=== PATIENT | female | born 1950 | race African-American/Black ===

== ENCOUNTER 2016-12-31 01:05 | Inpatient (IN) | payer MEDICARE, MEDICAID ==
[~2016-12-31] VITALS: Ht 152.4 cm; Wt 77.1 kg
[2016-12-31] MEDS ORDERED: MORPHINE SULFATE 4 MG/ML CPJ (NOT FOR IM USE) IV STA (01:42)
[2016-12-31] MEDS ORDERED: ONDANSETRON HCL 4MG/2ML VIAL IV STA (01:42)
[2016-12-31] MEDS ORDERED: SODIUM CHLORIDE 0.9% 1,000 ML IV ONE (01:42)
[2016-12-31 03:15] LABS: BASOPHILS % 2.2 % (0.0-2.0); EOSINOPHILS % 1.1 % (0.0-5.0); HEMATOCRIT. 37.7 % (36.0-48.0); HEMOGLOBIN. 12.5 g/dL (12.0-16.0); LYMPHOCYTES % 40.5 % (20.0-50.0); MEAN CORPUSCULAR HEMOGLOBIN 31.3 pg (28.0-32.0); MEAN CORPUSCULAR VOLUME 94.6 fL (81.0-99.0); MEAN PLATELET VOLUME 7.3 fl (7.4-10.4); MONOCYTES % 7.9 % (2.0-8.0); NEUTROPHILS % 48.3 % (40.0-76.0); PLATELET 215 x1000/uL (130-400); RED BLOOD CELL COUNT 3.98 mill/uL (4.2-5.4); RED CELL DISTRIBUTION WIDTH 15.7 % (11.6-14.6)
[2016-12-31 04:06] LABS: CARBON DIOXIDE 27 mEq/L (21-32); CHLORIDE 105 mEq/L (98-107)
[2016-12-31 10:04] LABS: CLARITY URINE CLEAR (CLEAR); COLOR URINE YELLOW (YELLOW); GLUCOSE URINE NEGATIVE (NEGATIVE); KETONES URINE NEGATIVE (NEGATIVE); LEUKOCYTE ESTERASE URINE 3+ (NEGATIVE); NITRITE URINE POSITIVE (NEGATIVE); OCCULT BLOOD URINE NEGATIVE (NEGATIVE); PH URINE 6.5 (4.5-8.0); PROTEIN URINE NEGATIVE (NEGATIVE); SPECIFIC GRAVITY URINE 1.005 (1.005-1.030)
[2016-12-31] MEDS: HYDROCODONE/ACETAMINOPHEN 10/325MG TABLET PO PRN ×2 (10:25→18:15)
[2016-12-31 14:00] VITALS: BP 110/52
[2016-12-31 15:00] VITALS: BP 110/52
[2016-12-31 16:00] VITALS: BP 114/57
[2016-12-31] MEDS ORDERED: BACL-141 PO (16:46)
[2016-12-31] MEDS ORDERED: LINA290C PO (16:46)
[2016-12-31] MEDS ORDERED: QUET25TA PO (16:46)
[2016-12-31] MEDS ORDERED: MULT-1223 PO (16:46)
[2016-12-31] MEDS ORDERED: CYCL5TAB PO (16:46)
[2016-12-31] MEDS ORDERED: OXYC-100 PO (16:46)
[2016-12-31] MEDS ORDERED: MAGN400T27 PO (16:46)
[2016-12-31] MEDS ORDERED: LACT1CAP68 PO (16:46)
[2016-12-31] MEDS ORDERED: SENN-169 PO (16:46)
[2016-12-31] MEDS ORDERED: ESCI10TA PO (16:46)
[2016-12-31] MEDS ORDERED: OXYB5TAB11 PO (16:46)
[2016-12-31] MEDS ORDERED: HYDR-522 PO (16:46)
[2016-12-31] MEDS ORDERED: ACET-2178 PO (16:46)
[2016-12-31] MEDS ORDERED: TEMA30CA5 PO (16:46)
[2016-12-31] MEDS ORDERED: LACT10SO6 PO (16:46)
[2016-12-31] MEDS ORDERED: GABA-290 PO (16:46)
[2016-12-31] MEDS ORDERED: PANT40TA4 PO (16:46)
[2016-12-31] MEDS ORDERED: LIDO700A15 TP (16:46)
[2016-12-31] MEDS ORDERED: BACLOFEN 10MG TABLET PO PRN (18:27)
[2016-12-31] MEDS ORDERED: ACETAMINOPHEN 325MG TABLET PO PRN (18:30)
[2016-12-31] MEDS ORDERED: HYDROCODONE/APAP 7.5/325MG 1 TAB TABLET PO PRN (18:30)
[2016-12-31] MEDS ORDERED: IBUPROFEN 600MG TABLET PO PRN (19:45)
[2016-12-31 20:00] VITALS: BP 121/64
[2016-12-31] MEDS: NA PHOS,M-B/NA PHOS,DI-BA ENEMA 118ML PR PRN (20:34)
[2016-12-31] MEDS: QUETIAPINE FUMARATE 25MG TABLET PO SCH (20:40)
[2017-01-01] VITALS: BP 113/65
[2017-01-01 04:00] VITALS: BP 137/77
[2017-01-01] MEDS: HYDROCODONE/ACETAMINOPHEN 10/325MG TABLET PO PRN (05:31)
[2017-01-01 08:00] VITALS: BP 123/70
[2017-01-01] MEDS ORDERED: QUETIAPINE FUMARATE 25MG TABLET PO SCH (09:00)
[2017-01-01] MEDS: OXYBUTYNIN CHLORIDE 5MG TABLET PO SCH (09:04)
[2017-01-01] MEDS: QUETIAPINE FUMARATE 25MG TABLET PO SCH ×2 (09:04→16:37)
[2017-01-01] MEDS: LIDOCAINE 5% PATCH TOP SCH (09:04)
[2017-01-01] MEDS: SENNOSIDES 8.6MG TABLET PO SCH ×2 (09:04→16:37)
[2017-01-01] MEDS: MAGNESIUM OXIDE 400MG TABLET PO SCH (09:05)
[2017-01-01 12:00] VITALS: BP 100/47
[2017-01-01 16:04] VITALS: BP 105/47
[2017-01-01] MEDS: HYDROCODONE/ACETAMINOPHEN 5/325MG TABLET PO PRN ×2 (16:41→20:35)
[2017-01-01 20:00] VITALS: BP 110/62
[2017-01-01] MEDS: ZOLPIDEM TARTRATE 5MG TABLET PO PRN (21:58)
[2017-01-02] VITALS: BP 144/74
[2017-01-02] MEDS: NA PHOS,M-B/NA PHOS,DI-BA ENEMA 118ML PR PRN (01:35)
[2017-01-02 04:00] VITALS: BP 160/79
[2017-01-02 08:00] VITALS: BP 126/79
[2017-01-02] MEDS: QUETIAPINE FUMARATE 25MG TABLET PO SCH ×2 (08:43→18:20)
[2017-01-02] MEDS: MULTIVITAMINS,THER W-MINERALS TABLET PO SCH (08:43)
[2017-01-02] MEDS: SENNOSIDES 8.6MG TABLET PO SCH ×2 (08:43→18:20)
[2017-01-02] MEDS: OXYBUTYNIN CHLORIDE 5MG TABLET PO SCH (08:43)
[2017-01-02] MEDS: LIDOCAINE 5% PATCH TOP SCH (08:43)
[2017-01-02] MEDS: MAGNESIUM OXIDE 400MG TABLET PO SCH (08:43)
[2017-01-02 12:00] VITALS: BP 130/56
[2017-01-02] MEDS: HYDROCODONE/ACETAMINOPHEN 5/325MG TABLET PO PRN ×2 (15:01→21:45)
[2017-01-02 16:00] VITALS: BP 92/65
[2017-01-02 20:24] VITALS: BP 138/80
[2017-01-02] MEDS: ZOLPIDEM TARTRATE 5MG TABLET PO PRN (22:19)
[2017-01-03] VITALS (7 sets, daily range): BP systolic 119–159; BP diastolic 66–82
[2017-01-03] MEDS: OXYBUTYNIN CHLORIDE 5MG TABLET PO SCH (09:04)
[2017-01-03] MEDS: SENNOSIDES 8.6MG TABLET PO SCH ×2 (09:04→17:18)
[2017-01-03] MEDS: MULTIVITAMINS,THER W-MINERALS TABLET PO SCH (09:04)
[2017-01-03] MEDS: MAGNESIUM OXIDE 400MG TABLET PO SCH (09:04)
[2017-01-03] MEDS: QUETIAPINE FUMARATE 25MG TABLET PO SCH ×2 (09:04→17:18)
[2017-01-03] MEDS: LIDOCAINE 5% PATCH TOP SCH (09:06)
[2017-01-03] MEDS: HYDROCODONE/ACETAMINOPHEN 5/325MG TABLET PO PRN ×2 (09:06→17:20)
== END 2017-01-03 21:26 | DRG 347 ==
LOC: ER 01:06 → 7WST 06:19 → EDBEDREQ 06:23 → ENRESERV 12:02
PROVIDERS: ADMIT Internal Medicine; ATTEND Internal Medicine
DX: M54.5 Low back pain (principal); E66.9 Obesity, unspecified; M19.90 Unspecified osteoarthritis, unspecified site; M06.9 Rheumatoid arthritis, unspecified; F17.200 Nicotine dependence, unspecified, uncomplicated; F41.9 Anxiety disorder, unspecified; Z83.3 Family history of diabetes mellitus; Z96.641 Presence of right artificial hip joint; G89.29 Other chronic pain; Z79.899 Other long term (current) drug therapy; Z68.33 Body mass index [BMI] 33.0-33.9, adult
CPT/HCPCS: 36415; 71010; 72131; 74176; 80053; 81001; 83605; 85025; 85651; 93005; 93970; 96361; 96374; 96375; 97110; 97163; 97530; 99285; J2270; J2405; J7030; J7050; A4315

== ENCOUNTER 2017-01-28 01:48 | Inpatient (IN) | payer MEDICARE, MEDICAID ==
[~2017-01-28] VITALS: Ht 172.7 cm; Wt 98.4 kg
[~2017-01-28 01:48] MED LIST: ACET-2178 PO; BACL-141 PO; CYCL5TAB PO; ESCI10TA PO; GABA-290 PO; HYDR-522 PO; LACT10SO6 PO; LACT1CAP68 PO; LIDO700A15 TP; LINA290C PO; MAGN400T27 PO; MULT-1223 PO; OXYB5TAB11 PO; OXYC-100 PO; PANT40TA4 PO; QUET25TA PO; SENN-169 PO; TEMA30CA5 PO
[2017-01-28] MEDS ORDERED: ONDANSETRON 4MG ODT PO ONE (04:45)
[2017-01-28] MEDS ORDERED: KETOROLAC 30MG/ML VIAL IV ONE (04:45)
[2017-01-28 04:57] LABS: EOSINOPHILS % 2.4 % (0.0-5.0); HEMOGLOBIN. 13.8 g/dL (12.0-16.0); LYMPHOCYTES % 49.5 % (20.0-50.0); MEAN CORPUSCULAR HEMOGLOBIN 31.6 pg (28.0-32.0); MONOCYTES % 11.9 % (2.0-8.0); NEUTROPHILS % 35.2 % (40.0-76.0); RED BLOOD CELL COUNT 4.37 mill/uL (4.2-5.4); RED CELL DISTRIBUTION WIDTH 16.4 % (11.6-14.6)
[2017-01-28 05:07] LABS: INR 1.3; PROTHROMBIN TIME 13.6 sec (9.4-11.6)
[2017-01-28 05:11] LABS: CARBON DIOXIDE 25 mEq/L (21-32); CHLORIDE 110 mEq/L (98-107)
[2017-01-28 05:33] LABS: GLUCOSE URINE NEGATIVE (NEGATIVE); KETONES URINE NEGATIVE (NEGATIVE); LEUKOCYTE ESTERASE URINE 2+ (NEGATIVE); NITRITE URINE NEGATIVE (NEGATIVE); OCCULT BLOOD URINE NEGATIVE (NEGATIVE); PROTEIN URINE NEGATIVE (NEGATIVE); SPECIFIC GRAVITY URINE 1.012 (1.005-1.030); UROBILINOGEN URINE 0.2 E.U./dL (0.2-1.0)
[2017-01-28 05:34] LABS: CLARITY URINE SL HAZY (CLEAR); COLOR URINE YELLOW (YELLOW)
[2017-01-28 05:43] LABS: *AMPHETAMINES SCREEN URINE NEGATIVE (NEGATIVE); *BARBITURATES SCREEN URINE NEGATIVE (NEGATIVE); *BENZODIAZEPINES SCREEN URINE NEGATIVE (NEGATIVE); *COCAINE SCREEN URINE NEGATIVE (NEGATIVE); CANNABINOID URINE SCREEN NEGATIVE (NEGATIVE); METHADONE URINE SCREEN NEGATIVE (NEGATIVE); OPIATES URINE SCREEN PRESUMTIVE POSITIVE (NEGATIVE); PHENCYCLIDINE URINE SCREEN NEGATIVE (NEGATIVE)
[2017-01-28 05:46] LABS: MEAN PLATELET VOLUME 7.1 fl (7.4-10.4); PLATELET 166 x1000/uL (130-400)
[2017-01-28] MEDS ORDERED: MORPHINE SULFATE 10 MG/ML CPJ IV SCH (09:18)
[2017-01-28] MEDS ORDERED: CEFTRIAXONE 1 G PREMIX 50 ML IV ONE (11:45)
[2017-01-28] MEDS ORDERED: MORPHINE SULFATE 4 MG/ML CPJ (NOT FOR IM USE) IV ONE (13:30)
[2017-01-28 17:00] VITALS: BP 149/81
[2017-01-28 20:00] VITALS: BP 130/83
[2017-01-28] MEDS ORDERED: GUAIFENESIN 200MG/10ML SUGAR FREE UDC PO PRN (21:15)
[2017-01-28] MEDS ORDERED: MAGNESIUM HYDROXIDE 400MG/5ML 30ML UDC PO PRN (21:15)
[2017-01-28] MEDS ORDERED: IPRATROPIUM/ALBUTEROL 0.5-3(2.5)MG/3ML NEB INH PRN (21:15)
[2017-01-28] MEDS ORDERED: ONDANSETRON HCL 4MG/2ML VIAL IV PRN (21:15)
[2017-01-28] MEDS ORDERED: ACETAMINOPHEN 325MG TABLET PO PRN (21:15)
[2017-01-28] MEDS ORDERED: ENOXAPARIN 40MG/0.4ML SYR SUBCUT SCH (21:15)
[2017-01-28] MEDS ORDERED: CLONIDINE 0.1MG TABLET PO PRN (21:15)
[2017-01-28] MEDS ORDERED: SENNOSIDES 8.6MG TABLET PO PRN (21:30)
[2017-01-28] MEDS: DIPHENHYDRAMINE 50MG/ML VIAL IV PRN (22:38)
[2017-01-28] MEDS: GABAPENTIN 300MG CAPSULE PO SCH (22:38)
[2017-01-28] MEDS: QUETIAPINE FUMARATE 25MG TABLET PO SCH (22:38)
[2017-01-28] MEDS: BISACODYL 10MG SUPP PR PRN (22:38)
[2017-01-28] MEDS: SODIUM CHLORIDE 0.9% INJ 3ML FLUSH IVF SCH (22:39)
[2017-01-28] MEDS ORDERED: TEMAZEPAM 15MG CAPSULE PO PRN (23:15)
[2017-01-29] VITALS: BP 166/80
[2017-01-29] MEDS: TEMAZEPAM 15MG CAPSULE PO PRN (01:01)
[2017-01-29 04:00] VITALS: BP 144/81
[2017-01-29] MEDS: SODIUM CHLORIDE 0.9% INJ 3ML FLUSH IVF SCH ×3 (06:41→21:40)
[2017-01-29] MEDS: GABAPENTIN 300MG CAPSULE PO SCH ×3 (06:41→21:40)
[2017-01-29 08:00] VITALS: BP 143/84
[2017-01-29 08:31] LABS: BASOPHILS % 1.3 % (0.0-2.0); EOSINOPHILS % 3.2 % (0.0-5.0); HEMATOCRIT. 43.2 % (36.0-48.0); HEMOGLOBIN. 14.3 g/dL (12.0-16.0); LYMPHOCYTES % 47.6 % (20.0-50.0); MEAN CORPUSCULAR HEMOGLOBIN 31.7 pg (28.0-32.0); MEAN CORPUSCULAR VOLUME 95.5 fL (81.0-99.0); MEAN PLATELET VOLUME 7.4 fl (7.4-10.4); MONOCYTES % 8.6 % (2.0-8.0); NEUTROPHILS % 39.3 % (40.0-76.0); PLATELET 177 x1000/uL (130-400); RED BLOOD CELL COUNT 4.52 mill/uL (4.2-5.4); RED CELL DISTRIBUTION WIDTH 16.8 % (11.6-14.6)
[2017-01-29 08:53] LABS: CARBON DIOXIDE 28 mEq/L (21-32); CHLORIDE 106 mEq/L (98-107)
[2017-01-29] MEDS: POLYETHYLENE GLYCOL 3350 (17GM) 1 DOSE PACK PO SCH (09:00)
[2017-01-29] MEDS: QUETIAPINE FUMARATE 25MG TABLET PO SCH ×2 (09:00→20:02)
[2017-01-29] MEDS: ENOXAPARIN 30MG/0.3ML SYR SUBCUT SCH ×2 (09:02→20:02)
[2017-01-29 12:00] VITALS: BP 121/72
[2017-01-29] MEDS: HYDROCODONE/APAP 7.5/325MG 1 TAB TABLET PO PRN ×2 (12:38→20:03)
[2017-01-29 16:00] VITALS: BP 133/70
[2017-01-29] MEDS: MAGNESIUM/ALUMINUM HYDROXIDE/SIMETHICONE 30ML UDC PO PRN (18:24)
[2017-01-29 20:00] VITALS: BP 132/70
[2017-01-29] MEDS: DIPHENHYDRAMINE 50MG/ML VIAL IV PRN (20:03)
[2017-01-29] MEDS: CEFTRIAXONE 1 G PREMIX 50 ML IV SCH (21:49)
[2017-01-30] VITALS: BP 134/68
[2017-01-30] MEDS: TEMAZEPAM 15MG CAPSULE PO PRN (00:50)
[2017-01-30] MEDS: IBUPROFEN 600MG TABLET PO PRN ×2 (00:50→09:06)
[2017-01-30 04:00] VITALS: BP 141/84
[2017-01-30] MEDS: SODIUM CHLORIDE 0.9% INJ 3ML FLUSH IVF SCH ×2 (06:04→14:49)
[2017-01-30] MEDS: GABAPENTIN 300MG CAPSULE PO SCH ×3 (06:05→20:42)
[2017-01-30] MEDS: HYDROCODONE/APAP 7.5/325MG 1 TAB TABLET PO PRN ×2 (06:05→14:05)
[2017-01-30 08:00] VITALS: BP 127/59
[2017-01-30 08:59] LABS: HEPATITIS B CORE AB IGM NEGATIVE
[2017-01-30] MEDS: QUETIAPINE FUMARATE 25MG TABLET PO SCH ×2 (08:59→20:41)
[2017-01-30] MEDS: ENOXAPARIN 30MG/0.3ML SYR SUBCUT SCH ×2 (08:59→20:49)
[2017-01-30 09:01] LABS: HEPATITIS A AB IGM NEGATIVE (NEGATIVE)
[2017-01-30] MEDS: POLYETHYLENE GLYCOL 3350 (17GM) 1 DOSE PACK PO SCH (09:03)
[2017-01-30] MEDS: BISACODYL 10MG SUPP PR PRN (09:07)
[2017-01-30 09:12] LABS: HEPATITIS B SURFACE ANTIGEN NEGATIVE
[2017-01-30 12:00] VITALS: BP 130/78
[2017-01-30] MEDS: MAGNESIUM/ALUMINUM HYDROXIDE/SIMETHICONE 30ML UDC PO PRN (14:02)
[2017-01-30 16:00] VITALS: BP 128/84
[2017-01-30] MEDS ORDERED: LACTULOSE 20G/30ML UDC PO PRN (18:30)
[2017-01-30 20:00] VITALS: BP 121/73
[2017-01-30] MEDS: CEFTRIAXONE 1 G PREMIX 50 ML IV SCH (20:41)
[2017-01-30] MEDS: SENNOSIDES 8.6MG TABLET PO SCH (20:51)
[2017-01-31] VITALS: BP 135/60
[2017-01-31] MEDS: SODIUM CHLORIDE 0.9% INJ 3ML FLUSH IVF SCH ×3 (00:37→14:56)
[2017-01-31] MEDS: TEMAZEPAM 15MG CAPSULE PO PRN (00:37)
[2017-01-31 04:00] VITALS: BP 138/77
[2017-01-31] MEDS: GABAPENTIN 300MG CAPSULE PO SCH ×2 (06:00→14:57)
[2017-01-31 08:00] VITALS: BP 113/75
[2017-01-31] MEDS: POLYETHYLENE GLYCOL 3350 (17GM) 1 DOSE PACK PO SCH (08:18)
[2017-01-31] MEDS: ENOXAPARIN 30MG/0.3ML SYR SUBCUT SCH ×2 (08:18→21:00)
[2017-01-31] MEDS: QUETIAPINE FUMARATE 25MG TABLET PO SCH ×2 (08:18→20:50)
[2017-01-31] MEDS: HYDROCODONE/APAP 7.5/325MG 1 TAB TABLET PO PRN ×2 (08:18→14:57)
[2017-01-31 12:00] VITALS: BP 120/70
[2017-01-31] MEDS: IBUPROFEN 600MG TABLET PO PRN (12:38)
[2017-01-31 16:00] VITALS: BP 127/79
[2017-01-31] MEDS ORDERED: SENNOSIDES/DOCUSATE SOD 8.6/50MG TABLET PO SCH (17:00)
[2017-01-31] MEDS ORDERED: TRAMADOL 50MG TABLET PO PRN (20:00)
[2017-01-31] MEDS: SENNOSIDES 8.6MG TABLET PO SCH (21:00)
[2017-01-31 21:13] VITALS: BP 150/73
== END 2017-01-31 22:20 | DRG 690 ==
LOC: ER 01:48 → 6EST 09:16 → ENRESERV 15:31
PROVIDERS: ADMIT Internal Medicine; ATTEND Internal Medicine
DX: N39.0 Urinary tract infection, site not specified (principal); F20.9 Schizophrenia, unspecified; K76.0 Fatty (change of) liver, not elsewhere classified; B19.20 Unspecified viral hepatitis C without hepatic coma; M06.9 Rheumatoid arthritis, unspecified; F41.1 Generalized anxiety disorder; R74.0 Nonspecific elevation of levels of transaminase and lactic acid dehydrogenase [LDH]; M54.9 Dorsalgia, unspecified; E66.9 Obesity, unspecified; F32.9 Major depressive disorder, single episode, unspecified; M19.90 Unspecified osteoarthritis, unspecified site; K59.09 Other constipation; B96.20 Unspecified Escherichia coli [E. coli] as the cause of diseases classified elsewhere; K80.20 Calculus of gallbladder without cholecystitis without obstruction; G89.29 Other chronic pain; N32.81 Overactive bladder; T50.905A Adverse effect of unspecified drugs, medicaments and biological substances, initial encounter; Z68.33 Body mass index [BMI] 33.0-33.9, adult; Z96.643 Presence of artificial hip joint, bilateral; Z79.899 Other long term (current) drug therapy; Y92.89 Other specified places as the place of occurrence of the external cause; Z83.3 Family history of diabetes mellitus
CPT/HCPCS: 36415; 74022; 76700; 80048; 80053; 80076; 80305; 81001; 85025; 85610; 86705; 86709; 86803; 87077; 87086; 87186; 87340; 93970; 94664; 96365; 96375; 97110; 97162; 97530; 99285; C1893; J0696; J1200; J1650; J1885; J2270; J2405; J7040; J7620; Q0162

== ENCOUNTER 2017-02-22 19:49 | Emergency (ER) | payer MEDICARE, MEDICAID ==
[~2017-02-22] VITALS: Ht 170.2 cm; Wt 109.0 kg
[2017-02-22] MEDS ORDERED: HYDROCODONE/APAP 7.5/325MG 1 TAB TABLET PO ONE (23:15)
[2017-02-22 23:34] LABS: CHLORIDE 105 mEq/L (98-107)
[2017-02-22 23:35] LABS: BASOPHILS % 1.2 % (0.0-2.0); HEMATOCRIT. 43.8 % (36.0-48.0); HEMOGLOBIN. 14.8 g/dL (12.0-16.0); LYMPHOCYTES % 52.4 % (20.0-50.0); MEAN CORPUSCULAR HEMOGLOBIN 32.1 pg (28.0-32.0); MEAN PLATELET VOLUME 7.3 fl (7.4-10.4); NEUTROPHILS % 38.4 % (40.0-76.0); PLATELET 187 x1000/uL (130-400); RED BLOOD CELL COUNT 4.61 mill/uL (4.2-5.4); RED CELL DISTRIBUTION WIDTH 17.7 % (11.6-14.6)
[2017-02-22 23:37] LABS: INR 1.1; PROTHROMBIN TIME 11.8 sec (9.4-11.6)
[2017-02-22 23:44] LABS: CARBON DIOXIDE 22 mEq/L (21-32)
[2017-02-23] MEDS ORDERED: KETOROLAC 30MG/ML VIAL IM SCH (06:20)
[2017-02-24] MEDS ORDERED: NAPROXEN 500MG TABLET PO NR (03:45)
[2017-02-24] MEDS ORDERED: SULFAMETHOXAZOLE/TRIMETHOPRIM 800/160MG TABLET PO NR (03:45)
[2017-02-24] MEDS ORDERED: SENNOSIDES/DOCUSATE SOD 8.6/50MG TABLET PO PRN (03:45)
[2017-02-24 05:30] VITALS: BP 127/89
== END 2017-02-24 10:21 | disposition home or self-care (01) ==
LOC: ER 19:49
DX: T24.111A Burn of first degree of right thigh, initial encounter (principal); T24.112A Burn of first degree of left thigh, initial encounter; R60.9 Edema, unspecified; F17.200 Nicotine dependence, unspecified, uncomplicated; G82.50 Quadriplegia, unspecified; Z86.73 Personal history of transient ischemic attack (TIA), and cerebral infarction without residual deficits; Z86.718 Personal history of other venous thrombosis and embolism; X11.8XXA Contact with other hot tap-water, initial encounter; Y93.89 Activity, other specified; Y92.89 Other specified places as the place of occurrence of the external cause; Y99.8 Other external cause status
CPT/HCPCS: 36415; 73630; 80053; 85025; 85610; 93970; 96372; 99285

== ENCOUNTER 2017-02-25 04:40 | Inpatient (IN) | payer MEDICARE, MEDICAID ==
[~2017-02-25] VITALS: Ht 157.5 cm; Wt 105.7 kg
[2017-02-25] MEDS ORDERED: ONDANSETRON HCL 4MG/2ML VIAL IV STA (06:46)
[2017-02-25] MEDS ORDERED: MORPHINE SULFATE 4 MG/ML CPJ (NOT FOR IM USE) IV STA (06:46)
[2017-02-25 07:15] LABS: BASOPHILS % 0.3 % (0.0-2.0); EOSINOPHILS % 3.2 % (0.0-5.0); HEMATOCRIT. 39.3 % (36.0-48.0); MEAN CORPUSCULAR HEMOGLOBIN 31.3 pg (28.0-32.0); MEAN CORPUSCULAR VOLUME 94.7 fL (81.0-99.0); MEAN PLATELET VOLUME 7.2 fl (7.4-10.4); MONOCYTES % 10.3 % (2.0-8.0); NEUTROPHILS % 38.2 % (40.0-76.0); PLATELET 136 x1000/uL (130-400); RED BLOOD CELL COUNT 4.15 mill/uL (4.2-5.4); RED CELL DISTRIBUTION WIDTH 17.8 % (11.6-14.6)
[2017-02-25 07:23] LABS: INR 1.1; PARTIAL THROMBOPLASTIN TIME 25.1 sec (23.4-31.0); PROTHROMBIN TIME 11.5 sec (9.4-11.6)
[2017-02-25 07:30] LABS: CARBON DIOXIDE 26 mEq/L (21-32); CHLORIDE 106 mEq/L (98-107)
[2017-02-25] MEDS ORDERED: MORPHINE SULFATE 10 MG/ML CPJ IV STA (07:39)
[2017-02-25] MEDS ORDERED: FUROSEMIDE 40MG/4ML VIAL IVP SCH (09:00)
[2017-02-25] MEDS ORDERED: CLONIDINE 0.1MG TABLET PO PRN (10:45)
[2017-02-25] MEDS ORDERED: ONDANSETRON HCL 4MG/2ML VIAL IV PRN (10:45)
[2017-02-25] MEDS ORDERED: IPRATROPIUM/ALBUTEROL 0.5-3(2.5)MG/3ML NEB INH PRN (10:45)
[2017-02-25] MEDS ORDERED: DIPHENHYDRAMINE 50MG/ML VIAL IV PRN (10:45)
[2017-02-25] MEDS ORDERED: LORAZEPAM 2MG/ML CPJ IV PRN (10:45)
[2017-02-25] MEDS ORDERED: NA PHOS,M-B/NA PHOS,DI-BA ENEMA 118ML PR PRN (10:45)
[2017-02-25] MEDS ORDERED: GUAIFENESIN 200MG/10ML SUGAR FREE UDC PO PRN (10:45)
[2017-02-25] MEDS ORDERED: ACETAMINOPHEN 325MG TABLET PO PRN (10:45)
[2017-02-25 12:00] VITALS: BP 135/75
[2017-02-25 12:30] VITALS: BP 135/75
[2017-02-25] MEDS ORDERED: SODIUM CHLORIDE 0.45% 1,000 ML IV SCH (13:00)
[2017-02-25] MEDS ORDERED: LORAZEPAM 0.5MG TABLET PO PRN (13:00)
[2017-02-25] MEDS: ASPIRIN 81MG EC TABLET PO SCH (15:18)
[2017-02-25] MEDS: ENOXAPARIN 40MG/0.4ML SYR SUBCUT SCH (15:22)
[2017-02-25] MEDS ORDERED: ACETAMINOPHEN 325MG TABLET PO SCH (15:45)
[2017-02-25] MEDS ORDERED: OXYCODONE HCL/ACETAMINOPHEN 5/325MG TABLET PO SCH (15:45)
[2017-02-25] MEDS ORDERED: BACLOFEN 10MG TABLET PO PRN (15:45)
[2017-02-25 16:00] VITALS: BP 136/70
[2017-02-25 16:29] LABS: CARBON DIOXIDE 25 mEq/L (21-32); CHLORIDE 105 mEq/L (98-107); TROPONIN I < 0.02 ng/mL (0.00-0.04)
[2017-02-25] MEDS ORDERED: FUROSEMIDE 40MG/4ML VIAL IVP NR (16:30)
[2017-02-25] MEDS: GABAPENTIN 300MG CAPSULE PO SCH (16:58)
[2017-02-25] MEDS: LACTULOSE 20G/30ML UDC PO SCH (16:58)
[2017-02-25] MEDS: SENNOSIDES 8.6MG TABLET PO SCH (16:58)
[2017-02-25] MEDS: QUETIAPINE FUMARATE 25MG TABLET PO SCH (16:59)
[2017-02-25] MEDS: MORPHINE SULFATE 2 MG/ML CPJ (NOT FOR IM USE) IV PRN (17:00)
[2017-02-25] MEDS ORDERED: MEDICATION NOT ON FORMULARY EA (Gabapentin 1 TAB) PO SCH (17:00)
[2017-02-25] MEDS: LIDOCAINE 5% PATCH TOP SCH (17:58)
[2017-02-25 20:00] VITALS: BP 94/58
[2017-02-25] MEDS: MAGNESIUM/ALUMINUM HYDROXIDE/SIMETHICONE 30ML UDC PO PRN (20:23)
[2017-02-26] VITALS: BP 107/71
[2017-02-26 04:00] VITALS: BP 142/79
[2017-02-26 07:29] LABS: BASOPHILS % 1.1 % (0.0-2.0); EOSINOPHILS % 2.1 % (0.0-5.0); HEMATOCRIT. 40.8 % (36.0-48.0); HEMOGLOBIN. 13.3 g/dL (12.0-16.0); LYMPHOCYTES % 51.2 % (20.0-50.0); MEAN CORPUSCULAR HEMOGLOBIN 31.3 pg (28.0-32.0); MEAN CORPUSCULAR VOLUME 95.9 fL (81.0-99.0); MEAN PLATELET VOLUME 7.9 fl (7.4-10.4); MONOCYTES % 11.3 % (2.0-8.0); NEUTROPHILS % 34.3 % (40.0-76.0); PLATELET 129 x1000/uL (130-400); RED BLOOD CELL COUNT 4.26 mill/uL (4.2-5.4); RED CELL DISTRIBUTION WIDTH 17.7 % (11.6-14.6)
[2017-02-26 08:00] VITALS: BP 126/52
[2017-02-26 08:02] LABS: CARBON DIOXIDE 29 mEq/L (21-32); CHLORIDE 104 mEq/L (98-107); HDL CHOLESTEROL 56 mg/dL (40-59)
[2017-02-26 08:10] LABS: LDL CHOLESTEROL 80 mg/dL (5-100)
[2017-02-26] MEDS ORDERED: LINACLOTIDE 290 MCG PO SCH (09:00)
[2017-02-26] MEDS ORDERED: FUROSEMIDE 40MG/4ML VIAL IVP SCH (09:00)
[2017-02-26] MEDS ORDERED: LIDOCAINE 5% PATCH TOP SCH (09:00)
[2017-02-26] MEDS: SENNOSIDES 8.6MG TABLET PO SCH ×2 (09:10→17:43)
[2017-02-26] MEDS: MAGNESIUM OXIDE 400MG TABLET PO SCH (09:11)
[2017-02-26] MEDS: OXYBUTYNIN CHLORIDE 5MG TABLET PO SCH (09:11)
[2017-02-26] MEDS: ASPIRIN 81MG EC TABLET PO SCH (09:11)
[2017-02-26] MEDS: GABAPENTIN 300MG CAPSULE PO SCH ×3 (09:11→17:43)
[2017-02-26] MEDS: CYCLOBENZAPRINE 10MG TABLET PO SCH (09:11)
[2017-02-26] MEDS: PANTOPRAZOLE 40MG DR TABLET PO SCH (09:12)
[2017-02-26] MEDS: MULTIVITAMINS,THER W-MINERALS TABLET PO SCH (09:12)
[2017-02-26] MEDS: QUETIAPINE FUMARATE 25MG TABLET PO SCH ×2 (09:12→17:43)
[2017-02-26] MEDS: CITALOPRAM HYDROBROMIDE 20MG TABLET PO SCH (09:12)
[2017-02-26] MEDS: LACTOBACILLUS GG CAPSULE PO SCH (09:12)
[2017-02-26] MEDS: LACTULOSE 20G/30ML UDC PO SCH ×3 (09:13→17:43)
[2017-02-26] MEDS: LIDOCAINE 5% PATCH TOP SCH (09:14)
[2017-02-26 10:04] LABS: T4 FREE 0.97 ng/dL (0.76-1.46)
[2017-02-26 12:00] VITALS: BP_SYST 119; BP_SYST 133; BP_DIAS 57; BP_DIAS 68
[2017-02-26] MEDS: FUROSEMIDE 80MG TABLET PO SCH ×2 (13:13→17:50)
[2017-02-26] MEDS: ENOXAPARIN 40MG/0.4ML SYR SUBCUT SCH (13:14)
[2017-02-26] MEDS: HYDROCODONE/ACETAMINOPHEN 10/325MG TABLET PO PRN ×3 (13:17→23:58)
[2017-02-26 16:00] VITALS: BP 125/61
[2017-02-26] MEDS: MAGNESIUM/ALUMINUM HYDROXIDE/SIMETHICONE 30ML UDC PO PRN (16:44)
[2017-02-26 16:51] LABS: CREATINE KINASE 83 IU/L (26-192); TROPONIN I < 0.02 ng/mL (0.00-0.04)
[2017-02-26 16:52] LABS: CREATINE KINASE MB FRACTION 1.2 ng/mL (0.5-3.6)
[2017-02-26 20:00] VITALS: BP 142/70
[2017-02-26 23:24] LABS: CREATINE KINASE 67 IU/L (26-192); CREATINE KINASE MB FRACTION 1.1 ng/mL (0.5-3.6); TROPONIN I < 0.02 ng/mL (0.00-0.04)
[2017-02-26] MEDS: TEMAZEPAM 15MG CAPSULE PO PRN (23:50)
[2017-02-27] VITALS: BP 132/73
[2017-02-27] MEDS ORDERED: DEXTROSE 50% WATER 50ML SYRINGE IV PRN (03:15)
[2017-02-27 04:00] VITALS: BP 105/65
[2017-02-27] MEDS: INSULIN LISPRO 100 UNITS/ML SUBCUT SCH ×4 (06:47→21:00)
[2017-02-27] MEDS: BLOOD SUGAR DIAGNOSTIC STRIP TEST SCH ×4 (06:47→21:00)
[2017-02-27] MEDS: FUROSEMIDE 80MG TABLET PO SCH ×2 (06:48→17:26)
[2017-02-27] MEDS: HYDROCODONE/ACETAMINOPHEN 10/325MG TABLET PO PRN ×2 (06:56→22:07)
[2017-02-27 08:00] VITALS: BP 115/62
[2017-02-27] MEDS: LIDOCAINE 5% PATCH TOP SCH (08:31)
[2017-02-27] MEDS: GABAPENTIN 300MG CAPSULE PO SCH ×3 (08:32→17:25)
[2017-02-27] MEDS: CYCLOBENZAPRINE 10MG TABLET PO SCH (08:32)
[2017-02-27] MEDS: MULTIVITAMINS,THER W-MINERALS TABLET PO SCH (08:32)
[2017-02-27] MEDS: LACTOBACILLUS GG CAPSULE PO SCH (08:32)
[2017-02-27] MEDS: MAGNESIUM OXIDE 400MG TABLET PO SCH (08:32)
[2017-02-27] MEDS: PANTOPRAZOLE 40MG DR TABLET PO SCH (08:32)
[2017-02-27] MEDS: OXYBUTYNIN CHLORIDE 5MG TABLET PO SCH (08:32)
[2017-02-27] MEDS: CITALOPRAM HYDROBROMIDE 20MG TABLET PO SCH (08:32)
[2017-02-27] MEDS: ASPIRIN 81MG EC TABLET PO SCH (08:32)
[2017-02-27] MEDS: QUETIAPINE FUMARATE 25MG TABLET PO SCH ×2 (08:32→17:25)
[2017-02-27] MEDS: SENNOSIDES 8.6MG TABLET PO SCH ×2 (08:33→17:00)
[2017-02-27] MEDS: LACTULOSE 20G/30ML UDC PO SCH ×3 (08:33→17:26)
[2017-02-27 08:55] LABS: CREATINE KINASE 66 IU/L (26-192); CREATINE KINASE MB FRACTION 1.3 ng/mL (0.5-3.6); TROPONIN I < 0.02 ng/mL (0.00-0.04)
[2017-02-27] MEDS: MORPHINE SULFATE 2 MG/ML CPJ (NOT FOR IM USE) IV PRN ×2 (11:32→15:25)
[2017-02-27 12:00] VITALS: BP 107/64
[2017-02-27] MEDS: ENOXAPARIN 40MG/0.4ML SYR SUBCUT SCH (13:47)
[2017-02-27 16:00] VITALS: BP 110/65
[2017-02-27 20:00] VITALS: BP 126/74
[2017-02-27] MEDS: TEMAZEPAM 15MG CAPSULE PO PRN (22:07)
[2017-02-27] MEDS: DOCUSATE SODIUM 100MG CAPSULE PO PRN (22:43)
[2017-02-27] MEDS: MAGNESIUM/ALUMINUM HYDROXIDE/SIMETHICONE 30ML UDC PO PRN (22:47)
[2017-02-28] VITALS: BP 122/70
[2017-02-28 04:00] VITALS: BP 123/59
[2017-02-28] MEDS: MORPHINE SULFATE 2 MG/ML CPJ (NOT FOR IM USE) IV PRN ×3 (05:08→14:07)
[2017-02-28] MEDS: BLOOD SUGAR DIAGNOSTIC STRIP TEST SCH ×4 (06:07→21:12)
[2017-02-28] MEDS: INSULIN LISPRO 100 UNITS/ML SUBCUT SCH ×4 (06:07→21:11)
[2017-02-28] MEDS: FUROSEMIDE 80MG TABLET PO SCH (06:07)
[2017-02-28 08:00] VITALS: BP 110/57
[2017-02-28] MEDS: LACTOBACILLUS GG CAPSULE PO SCH (09:48)
[2017-02-28] MEDS: LACTULOSE 20G/30ML UDC PO SCH ×4 (09:48→17:49)
[2017-02-28] MEDS: SENNOSIDES 8.6MG TABLET PO SCH ×2 (09:49→17:49)
[2017-02-28] MEDS: CYCLOBENZAPRINE 10MG TABLET PO SCH (09:49)
[2017-02-28] MEDS: CITALOPRAM HYDROBROMIDE 20MG TABLET PO SCH (09:49)
[2017-02-28] MEDS: MULTIVITAMINS,THER W-MINERALS TABLET PO SCH (09:49)
[2017-02-28] MEDS: ASPIRIN 81MG EC TABLET PO SCH (09:49)
[2017-02-28] MEDS: FUROSEMIDE 40MG/4ML VIAL IVP SCH ×2 (09:49→17:49)
[2017-02-28] MEDS: PANTOPRAZOLE 40MG DR TABLET PO SCH (09:49)
[2017-02-28] MEDS: QUETIAPINE FUMARATE 25MG TABLET PO SCH ×2 (09:49→17:49)
[2017-02-28] MEDS: GABAPENTIN 300MG CAPSULE PO SCH ×3 (09:49→21:11)
[2017-02-28] MEDS: OXYBUTYNIN CHLORIDE 5MG TABLET PO SCH (09:49)
[2017-02-28] MEDS: MAGNESIUM OXIDE 400MG TABLET PO SCH (09:49)
[2017-02-28] MEDS: LIDOCAINE 5% PATCH TOP SCH (09:52)
[2017-02-28] MEDS: SILVER SULFADIAZINE 1% CREAM 50GM TOP SCH (09:53)
[2017-02-28 12:00] VITALS: BP 134/59
[2017-02-28] MEDS: ENOXAPARIN 40MG/0.4ML SYR SUBCUT SCH (14:04)
[2017-02-28] MEDS: MAGNESIUM/ALUMINUM HYDROXIDE/SIMETHICONE 30ML UDC PO PRN (14:10)
[2017-02-28 16:00] VITALS: BP 119/59
[2017-02-28 20:00] VITALS: BP 118/66
[2017-03-01] VITALS: BP 132/54
[2017-03-01 04:00] VITALS: BP 135/63
[2017-03-01] MEDS: MORPHINE SULFATE 2 MG/ML CPJ (NOT FOR IM USE) IV PRN ×2 (04:55→11:35)
[2017-03-01] MEDS: FUROSEMIDE 40MG/4ML VIAL IVP SCH (06:21)
[2017-03-01] MEDS: BLOOD SUGAR DIAGNOSTIC STRIP TEST SCH ×2 (06:29→12:44)
[2017-03-01] MEDS: INSULIN LISPRO 100 UNITS/ML SUBCUT SCH ×2 (06:31→12:15)
[2017-03-01 08:00] VITALS: BP 113/47
[2017-03-01] MEDS ORDERED: OXYCODONE HCL/ACETAMINOPHEN 5/325MG TABLET PO PRN (08:45)
[2017-03-01] MEDS ORDERED: FAMOTIDINE 20MG TABLET PO SCH (09:00)
[2017-03-01 09:55] LABS: BASOPHILS % 0.8 % (0.0-2.0); HEMATOCRIT. 39.1 % (36.0-48.0); HEMOGLOBIN. 13.1 g/dL (12.0-16.0); LYMPHOCYTES % 30.7 % (20.0-50.0); MEAN CORPUSCULAR VOLUME 95.7 fL (81.0-99.0); MEAN PLATELET VOLUME 7.5 fl (7.4-10.4); MONOCYTES % 10.8 % (2.0-8.0); NEUTROPHILS % 56.7 % (40.0-76.0); PLATELET 160 x1000/uL (130-400); RED BLOOD CELL COUNT 4.08 mill/uL (4.2-5.4); RED CELL DISTRIBUTION WIDTH 17.6 % (11.6-14.6)
[2017-03-01 10:12] LABS: CARBON DIOXIDE 33 mEq/L (21-32); CHLORIDE 96 mEq/L (98-107)
[2017-03-01] MEDS: SILVER SULFADIAZINE 1% CREAM 50GM TOP SCH (11:11)
[2017-03-01] MEDS: LACTOBACILLUS GG CAPSULE PO SCH (11:12)
[2017-03-01] MEDS: OXYBUTYNIN CHLORIDE 5MG TABLET PO SCH (11:12)
[2017-03-01] MEDS: CITALOPRAM HYDROBROMIDE 20MG TABLET PO SCH (11:12)
[2017-03-01] MEDS: CYCLOBENZAPRINE 10MG TABLET PO SCH (11:12)
[2017-03-01] MEDS: ASPIRIN 81MG EC TABLET PO SCH (11:12)
[2017-03-01] MEDS: GABAPENTIN 300MG CAPSULE PO SCH ×2 (11:12→13:00)
[2017-03-01] MEDS: MULTIVITAMINS,THER W-MINERALS TABLET PO SCH (11:13)
[2017-03-01] MEDS: SENNOSIDES 8.6MG TABLET PO SCH (11:13)
[2017-03-01] MEDS: QUETIAPINE FUMARATE 25MG TABLET PO SCH (11:13)
[2017-03-01] MEDS: DOCUSATE SODIUM 100MG CAPSULE PO PRN (11:13)
[2017-03-01] MEDS: MAGNESIUM OXIDE 400MG TABLET PO SCH (11:24)
[2017-03-01] MEDS: LACTULOSE 20G/30ML UDC PO SCH ×3 (11:26→15:00)
[2017-03-01] MEDS: LIDOCAINE 5% PATCH TOP SCH (11:35)
[2017-03-01 12:00] VITALS: BP 113/62
[2017-03-01] MEDS: ENOXAPARIN 40MG/0.4ML SYR SUBCUT SCH (15:00)
[2017-03-01 17:25] VITALS: BP 128/59
== END 2017-03-01 17:45 | DRG 70 ==
LOC: ER 04:40 → EDBEDREQ 09:19 → 5WST 10:16 → EDBEDREQ 10:20 → ENRESERV 10:38
PROVIDERS: ADMIT Internal Medicine; ATTEND Internal Medicine
PROC: B5181ZA Fluoroscopy of Superior Vena Cava using Low Osmolar Contrast, Guidance (ICD-10-PCS; principal; 2017-02-27)
PROC: 02HV33Z Insertion of Infusion Device into Superior Vena Cava, Percutaneous Approach (ICD-10-PCS; 2017-02-27)
PROC: B548ZZA Ultrasonography of Superior Vena Cava, Guidance (ICD-10-PCS; 2017-02-27)
DX: G93.41 Metabolic encephalopathy (principal); G82.50 Quadriplegia, unspecified; E11.40 Type 2 diabetes mellitus with diabetic neuropathy, unspecified; M19.90 Unspecified osteoarthritis, unspecified site; G47.00 Insomnia, unspecified; E86.0 Dehydration; I10 Essential (primary) hypertension; Z86.73 Personal history of transient ischemic attack (TIA), and cerebral infarction without residual deficits; Z79.899 Other long term (current) drug therapy; Z79.1 Long term (current) use of non-steroidal anti-inflammatories (NSAID)
CPT/HCPCS: 36415; 36569; 70450; 71010; 76937; 77001; 80048; 80053; 80061; 82550; 82553; 82962; 83036; 83690; 83880; 84439; 84443; 84484; 85025; 85379; 85610; 85730; 93005; 93306; 93970; 96374; 96375; 97163; 99285; A6261; C1725; C1893; J1650; J1815; J1885; J1940; J2270; J2405

== ENCOUNTER 2023-09-11 19:04 | Emergency (ER) | payer MEDICARE, MEDICAID ==
[~2023-09-11] VITALS: Ht 170.2 cm; Wt 75.0 kg
[~2023-09-11 19:04] MED LIST changes: -ACET-2178 PO; -MAGN400T27 PO; +MAGN400T55 PO; -OXYB5TAB11 PO; +OXYB5TAB21 PO; -PANT40TA4 PO; +PANT40TA51 PO; -SENN-169 PO; +SENN-257 PO; +TOPUD PO
[2023-09-11 19:05] VITALS: O2SAT 98
[2023-09-11] MEDS: HYDROCODONE/ACETAMINOPHEN 5/325MG TABLET PO ONE (19:56)
[2023-09-11 22:20] VITALS: BP 117/48; PULSE 71; RESP 20; TEMP 98.5
== END 2023-09-12 03:43 ==
LOC: ER 19:04
DX: M79.604 Pain in right leg (principal); M79.605 Pain in left leg; R60.0 Localized edema; E11.9 Type 2 diabetes mellitus without complications; F20.9 Schizophrenia, unspecified
CPT/HCPCS: 99283